=== PATIENT | female | born 1965 | race Caucasian/White ===

== ENCOUNTER → 2024-11-02 | Outpatient (CLI) | payer MEDICARE, MEDICAID, SELFPAY ==
--- NOTE | 2024-11-02 14:00 | XR_ITS ---
Examination: Screening digital mammography, bilateral Computer aided detection 3-D breast Tomosynthesis, bilateral Date and time of exam: November 02, 2024 1341 hours Indication: Screening Technique: Nonmagnified MLO, CC views of the breasts to been obtained, reconstructed from 3-D Tomosynthesis images. R2 computer aided detection program utilized for evaluation of suspicious masses and/or abnormal calcifications. 3-D Tomosynthesis images obtained. Findings: Scattered areas of fibroglandular density 12 mm nodule upper outer right breast irregular margins 14 mm lobular nodule upper outer left breast Impression: BI-RADS Category 0: Incomplete: Need additional imaging evaluation Recommend follow-up spot tomographic views of 12 mm nodule upper outer right breast Recommend follow-up spot tomographic views 14 mm lobular nodule upper outer left breast Recommend bilateral breast sonography follow-up to complete the workup.
== END | disposition home or self-care (01) ==
PROVIDERS: PCP Nurse Practitioner Family; Referring Provider Nurse Practitioner Family; Visit Provider Nurse Practitioner Family
DX: Z12.31 Encounter for screening mammogram for malignant neoplasm of breast (principal); R92.8 Other abnormal and inconclusive findings on diagnostic imaging of breast; N63.21 Unspecified lump in the left breast, upper outer quadrant; N63.11 Unspecified lump in the right breast, upper outer quadrant
CPT/HCPCS: 77063; 77067

== ENCOUNTER → 2025-01-19 | Outpatient (CLI) | payer MEDICARE, MEDICAID, SELFPAY ==
--- NOTE | 2025-01-19 10:18 | XR_ITS ---
Examination: Lumbar spine 3 views Technique one AP lateral coned lateral lower lumbar spine 3 views Date and time: January 19, 2025 1111 hours INDICATIONS: Lower back pain radiating down the legs months FINDINGS: Moderate osteopenia Minimal anterolisthesis L4 on L5 No lumbar fracture No significant lumbar disc narrowing IMPRESSION: No lumbar fracture No significant lumbar disc narrowing
== END | disposition home or self-care (01) ==
LOC: CDIM 10:09
PROVIDERS: PCP Nurse Practitioner Family; Referring Provider Nurse Practitioner Family; Visit Provider Nurse Practitioner Family
DX: M85.88 Other specified disorders of bone density and structure, other site (principal)
CPT/HCPCS: 72100

== ENCOUNTER 2025-02-12 06:43 | Emergency (ER) | payer MEDICARE, MEDICAID, SELFPAY ==
[2025-02-12] VITALS (8 sets, daily range): BP systolic 122–143; BP diastolic 74–84; PULSE 92–108; RESP 15–26; TEMP 36.4–36.9; O2SAT 97–100; BMI 30.7
--- NOTE | 2025-02-12 07:17 | EKG_ITS ---
[facility] Test Date: 2025-02-12 Pat Name: SUN SHAFFER Department: Room: - Gender: Female [employer]: : 1965 Requested By: Asa Barriga Order Number: [id number] Reading MD: Asa Barriga Measurements Intervals Maxie Rate: 106 P: 61 AR: 104 QRS: -35 QRSD: 102 T: 37 QT: 368 QTc: 490 Interpretive Statements SINUS TACHYCARDIA WITH SHORT AR INTERVAL LEFT AXIS DEVIATION [QRS AXIS < -30] INCOMPLETE RIGHT BUNDLE BRANCH BLOCK [90+ ms QRS DURATION, TERMINAL R IN V1/V2, 40+ ms S IN I/aVL/V4/V5/V6] MODERATE ST DEPRESSION [0.05+ mV ST DEPRESSION] Compared to ECG 07/28/2018 17:17:09 Short AR interval now present Left-axis deviation now present Incomplete right bundle-branch block now present ST (T wave) deviation now present Ventricular premature complex(es) no longer present /store/S0/[id number]/ecg/[id number].pdf
[2025-02-12 07:38] LABS: Basophils # (Auto) 0.0 Thou/mm3 (0.0-0.2); Basophils % (Auto) 0 % (0-2.5); Eosinophils # (Auto) 0.0 Thou/mm3 (0.0-0.5); Eosinophils % (Auto) 0 % (0-10); Hematocrit 47.9 % (36.0-46.0); Hemoglobin 17.7 g/dL (12.0-16.0); Immature Granulocytes Auto 0.11 Thou/mm3 (0.00-0.00); Lymphocytes # (Auto) 1.8 Thou/mm3 (1.0-4.8); Lymphocytes % (Auto) 12 % (10-50); Mean Corpuscular HGB Conc 37.0 g/dl (31.0-37.0); Mean Corpuscular Hemoglobin 30.8 pg (25.0-35.0); Mean Corpuscular Volume 83 fL (80-100); Monocytes # (Auto) 1.1 Thou/mm3 (0.0-0.8); Monocytes % (Auto) 7 % (0-12); Neutrophils # (Auto) 12.6 Thou/mm3 (1.8-7.7); Neutrophils % (Auto) 80 % (37-80); Nucleated Red Blood Cell # 0.00 Thou/mm3 (0.00-0.00); Nucleated Red Blood Cell % 0 /100 WBC (0); Platelet Count 290 Thou/mm3 (140-440); RDW Standard Deviation 40.3 fL (36.4-46.3); Red Blood Count 5.74 Miln/mm3 (4.00-5.20); White Blood Count 15.7 Thou/mm3 (3.6-11.0)
[2025-02-12 08:01] LABS: INR 1.2 (0.9-1.3); Prothrombin Time 12.7 Seconds (9.0-12.2)
[2025-02-12] MEDS: SODIUM CHLORIDE 0.9% 1000 ML 1,000 ML 999 ML IV (08:05)
[2025-02-12 08:11] LABS: Alanine Aminotransferase 55 U/L (10-49); Albumin, Serum 5.2 gm/dL (3.5-5.0); Albumin/Globulin Ratio 1.7 (1.2-2.2); Alkaline Phosphatase 157 U/L (46-116); Anion Gap 23 (7-16); Aspartate Amino Transferase 127 U/L (0-34); BUN/Creatinine Ratio 14 Ratio (12-20); Bilirubin,Total 1.2 mg/dL (0.3-1.2); Blood Urea Nitrogen 31 mg/dL (9-23); Calcium 9.9 mg/dL (8.3-10.6); Calcium (Corrected) 9.9 mg/dL (8.5-10.1); Carbon Dioxide 20.6 mMol/L (20.0-31.0); Chloride 80 mMol/L (98-107); Creatinine (Component) 2.2 mg/dL (0.6-1.3); Estimated Creatinine Clearance 24.3 mL/min (>60); Globulin 3.0 gm/dL (2.3-3.5); Glucose 269 mg/dL (74-106); Osmolality,Calculated 265 (275-295); Potassium 3.6 mMol/L (3.4-5.1); Sodium 124 mMol/L (136-145); Total Protein 8.2 gm/dL (5.7-8.2); Troponin I 0.030 ng/mL (0.0-0.045); eGFR 25 See Note
[2025-02-12] MEDS: ALBUTEROL RT 2.5 MG/3 ML NEBU 5 MG INH (08:11)
[2025-02-12 08:34] LABS: Creatine Kinase 3123 U/L (34-171)
[2025-02-12 10:50] LABS: Collection Type, Urine Clean Catch
[2025-02-12 11:01] LABS: Bacteria,Urine Rare; Bilirubin,Urine 1+ (Negative); Blood,Urine Negative (Negative); Color,Urine Yellow (Lt Yel-Yel); Glucose, Urine Negative (Negative); Hyaline Casts,Urine 2 /hpf (0-1); Ketones,Urine 2+ (Negative); Leukocyte Esterase,Urine Positive (Negative); Nitrite,Urine Negative (Negative); PH,Urine 5.5 (5.0-7.0); Protein,Urine Trace (Neg - Trace); RBC,Urine 1 /hpf (0-3); Specific Gravity,Urine 1.023 (1.001-1.035); Squamous Epithelial Cell,Urine 11 /hpf (0-5); Urobilinogen,Urine 2.0 mg/dL (0.0-1.0); WBC,Urine 5 /hpf (0-5)
[2025-02-12] MEDS: ALBUTEROL RT 2.5 MG/3 ML NEBU INH (11:02)
[2025-02-12 11:08] LABS: Clarity,Urine Hazy (Clear/Hazy)
--- NOTE | 2025-02-12 12:46 | PD.EDSOB ---
ED SOB =RME/HPI General Chief Complaint: Shortness of Breath/Dyspnea Stated Complaint: SOB Time Seen by Provider: 02/12/25 07:17 Arrival date/time: 02/12/25 06:43 Limitations: no limitations RME / HPI RME / HPI Narrative: 59 year old female with history of COPD, hypertension, and diabetes presents to the ED BIBA from home for multiple complaints. Patient reports her apartment currently is without air conditioning and has felt warm throughout the day. Accompanied by intermittent all over muscle cramps, most severe to bilateral lower extremities, feeling short of breath, and dehydrated. No other complaints reported. Related Data Home Medications ?Medication ?Instructions ?Recorded ?Confirmed cyclobenzaprine 5 mg tablet 5 mg PO HS 02/20/18 07/28/18 liraglutide 0.6 mg/0.1 mL (18 mg/3 1.6 mg subcut QDAY 02/20/18 07/28/18 mL) subcutaneous pen injector (Victoza 3-Dhiraj) metformin 1,000 mg tablet 1,000 mg PO BID 02/20/18 07/28/18 sertraline 100 mg tablet (Zoloft) 100 mg PO BID 02/20/18 07/29/18 esomeprazole magnesium 20 mg 20 mg PO QDAY 07/29/18 07/29/18 capsule,delayed release (Nexium 24HR) hydrocodone 7.5 mg-acetaminophen 1 tab PO TID PRN Pain 07/29/18 07/29/18 325 mg tablet ([place]) ibuprofen 800 mg tablet 800 mg PO TID PRN Pain 07/29/18 07/29/18 Previous Rx's ?Medication ?Instructions ?Recorded hydrocodone 10 mg-acetaminophen 1 tab PO BID PRN pain #10 tabs 01/27/23 325 mg tablet Allergies Allergy/AdvReac Type Severity Reaction Status Date / Time No Known Allergies Allergy Verified 02/12/25 07:22 Review of Systems Review of Systems Systems Reviewed: All systems reviewed, normal except as documented Past Medical History Past Medical History NEUROLOGIC: Positive Cerebrovascular Accident CARDIAC: Positive Hypercholesterolemia and Hypertension RESPIRATORY: Positive Asthma ENDOCRINE: Positive Diabetes Mellitus Type 2 OTHER HISTORY: Positive Falls Family History FAMILY HISTORY: Positive Family Cardiac Disorders Surgical History SURGICAL: Positive Section Social History SMOKING STATUS: Light (< 1 pack/day) SECOND HAND EXPOSURE: No ED Exam General Limitations: Present no limitations General appearance: Present alert and in no apparent distress Head Head exam: Present atraumatic, normocephalic and normal inspection Eye Eye exam: Present normal appearance, PERRL and EOMI ENT ENT exam: Present normal exam, normal oropharynx and mucous membranes moist Neck Neck exam: Present normal inspection, full ROM and trachea midline Chest Chest inspection: Present normal inspection and symmetric chest wall rise Respiratory Respiratory exam: Present normal lung sounds bilaterally Cardiovascular Cardiovascular exam: Present regular rate, normal rhythm and normal heart sounds Abdominal Exam Abdominal exam: Present soft and normal bowel sounds Extremities Exam Extremities exam: Present normal inspection and full ROM Back Exam Back exam: Present normal inspection and full ROM Neurological Exam Neurological exam: Present alert, oriented X3 and CN II-XII intact Psychiatric Psychiatric exam: Present normal affect and normal mood Skin Skin exam: Present warm, dry, intact and normal color Course Quality Measures none Orders Category Date Time Status COVID-19 Screening Questionnaire NOW Care 02/12/25 13:52 Active Hospital Product Specialist Q4H START 00 Care 02/12/25 07:26 Active Decision to Admit X1 Care 02/12/25 13:52 Active EKG (ED ONLY) *Do not use* NOW Care 02/12/25 07:17 Completed Insert [Insert IV] NOW Care 02/12/25 07:17 Active EKG (ED Only) Stat Exams 02/12/25 07:17 Draft Beta Hydroxybutyrate Stat Lab 02/12/25 13:51 Ordered CBC Stat Lab 02/12/25 07:32 Completed Comprehensive Metabolic Panel Stat Lab 02/12/25 07:32 Completed Creatine Kinase Stat Lab 02/12/25 07:32 Completed Lactic Acid [Lactate (Lactic Acid)] Stat Lab 02/12/25 13:52 Ordered Prothrombin Time with INR Stat Lab 02/12/25 07:32 Completed Troponin I Stat Lab 02/12/25 07:32 Completed Urinalysis Stat Lab 02/12/25 10:42 Completed ALBUTEROL RT 3ml [Proventil Rt 3ml] Med 02/12/25 10:47 Discontinued 2.5 mg INH X1 ONE ALBUTEROL RT 3ml [Proventil Rt 3ml] Med 02/12/25 07:17 Discontinued 5 mg INH X1 ONE MethylPREDNISolone. [SoluMEDROL Inj] Med 02/12/25 07:17 Discontinued 60 mg IVP X1 ONE Sodium Chloride 0.9% 1000 ml [Ns] 1,000 ml Med 02/12/25 07:17 Discontinued IV 999 mls/hr Vital Signs Vital signs: Vital Signs Temperature 98.5 F 02/12/25 07:22 Pulse Rate 106 H 02/12/25 07:22 Respiratory Rate 15 02/12/25 07:22 Blood Pressure 126/83 02/12/25 07:22 Pulse Oximetry (%) 98 02/12/25 07:22 Oxygen Delivery Method Room Air 02/12/25 07:22 Pulse ox is 98% on room air which is adequate. Shortness of Breath / Dyspnea MDM Narrative MDM Narrative:: IMabel, am scribing for and in the presence of Dr. Gramajo. 1400: Patient is choosing to leave against medical advice. I have personally explained to the patient that choosing to do so may result in permanent bodily harm or . I discussed a great length that without further evaluation and monitoring there may be unforeseen circumstances and deterioration causing permanent bodily harm or as a result of their choice. The patient is alert, oriented and competent at this time. The patient states that they are aware of the serious risks as explained, but they continue to wish to leave against medical advice. Patient data External records reviewed:: [facility] previous records (I reviewed ED visit on 01/27/2023 for fractured wrist ) and EMS form Clinical information provided by:: patient and EMS Social determinants that could affect healthcare access:: other (specify) (Active tobacco smoker ) Patient has the following chronic illnesses:: HTN, DM, COPD How is presenting disease/condition affected by chronic disease/condition?: exacerbated by Evaluation data The following diagnostics were reviewed and interpreted by me:: lab results and EKG tracing(s) (02/12/2025 @ 07:25 AM. Sinus tachycardia with short NV interval, rate 106, left axis deviation, incomplete right bundle branch block, no STEMI. ) Lab and/or radiology exams considered but not ordered:: None Interpretation Summary: As noted above Medications / Prescriptions Medications or Prescriptions considered but not ordered:: None Medication administrations:: Medication Administration History Discontinued Medications Albuterol (Albuterol Rt 2.5 Mg/3 Ml Nebu) 5 mg INH X1 ONE Stop: 02/12/25 07:18 Last Admin: 02/12/25 08:11 Dose: 5 mg Documented By: FAN Albuterol (Albuterol Rt 2.5 Mg/3 Ml Nebu) 2.5 mg INH X1 ONE Stop: 02/12/25 10:48 Last Admin: 02/12/25 11:02 Dose: 2.5 mg Documented By: FAN Sodium Chloride (Ns) 1,000 mls @ 999 mls/hr IV .Q1H1M ONE Stop: 02/12/25 08:17 Last Infusion: 02/12/25 09:10 Dose: Infused Documented By: Admin: 02/12/25 08:05 Dose: 999 mls/hr Documented By: BRET Methylprednisolone Sodium Succinate (Methylprednisolone Sod Succ 40 Mg Vial) 60 mg IVP X1 ONE Stop: 02/12/25 07:18 Last Admin: 02/12/25 08:02 Dose: 60 mg Documented By: BRET See above Consultations Consultation(s) initiated? (list below): No Diagnosis Shortness of Breath Differential Diagnosis: acute exacerbation of chronic obstructive airways disease, congestive heart failure, community acquired pneumonia, asthma with exacerbation and other (dehydration) Most likely diagnosis given after review of the tests above:: Hyponatremia Dehydration Heat exhaustion COPD exacerbation Admission Indicated Admission indicated?: indicated Explain why admission is indicated or not indicated:: however, patient is leaving against medical advice. Admission Request Was there a request for admission?: No Disposition Plan Disposition Plan: other (specify) (Patient signed out AMA ) Discharge Plan Plan Patient Disposition: Left Against Medical Advice Prescriptions/Referrals Prescriptions/Med Rec: No Action sertraline [Zoloft] 100 mg Tablet 100 mg PO BID metformin 1,000 mg Tablet 1,000 mg PO BID cyclobenzaprine 5 mg Tablet 5 mg PO HS liraglutide [Victoza 3-Dhiraj] 0.6 mg/0.1 mL (18 mg/3 mL) Pen Injector 1.6 mg SUB-Q QDAY ibuprofen 800 mg Tablet 800 mg PO TID PRN (Reason: Pain) hydrocodone-acetaminophen [[place]] 7.5-325 mg Tablet 1 tab PO TID PRN (Reason: Pain) esomeprazole magnesium [Nexium 24HR] 20 mg Capsule,Delayed Release(Dr/Ec) 20 mg PO QDAY hydrocodone-acetaminophen 10-325 mg tablet 1 tab PO BID MDD 2 PRN (Reason: pain) Qty: 10 0RF Referrals: Rodney([facility])Thomas NP [Primary Care Provider] - In 1 week Problem List Clinical Impression: Hyponatremia, Dehydration, Heat exhaustion, COPD exacerbation Patient/Caregiver Discharge Instructions Print Language: Norwegian
== END 2025-02-12 14:21 | disposition left against medical advice (07) ==
PROVIDERS: Emergency Provider Family Medicine; PCP Nurse Practitioner Family
DX: E87.1 Hypo-osmolality and hyponatremia (principal); E86.0 Dehydration; T67.5XXA Heat exhaustion, unspecified, initial encounter; J44.1 Chronic obstructive pulmonary disease with (acute) exacerbation; I45.10 Unspecified right bundle-branch block; E11.9 Type 2 diabetes mellitus without complications; I10 Essential (primary) hypertension
CPT/HCPCS: 36415; 80053; 81001; 82010; 82550; 83605; 84484; 85025; 85610; 94640; 96361; 96374; 99284; J2919; J7030